=== PATIENT | male | born 1935 | race Two or more races ===

== ENCOUNTER 2023-02-02 19:32 | Emergency (ER) | payer OTHER ==
[~2023-02-02] VITALS: Ht 160 cm; Wt 55.3 kg
[2023-02-02 20:56] LABS: CALCIUM 9.1 mg/dL (8.5-10.1); CREATININE SERUM 1.47 mg/dL (0.70-1.30); GFR 45.53; POTASSIUM 4.27 mEq/L (3.5-5.1)
[2023-02-02 20:59] LABS: PH,URINE 5.5 (5.0-8.0); URINE APPEARANCE Clear; URINE BILIRRUBIN Negative (NEGATIVE); URINE BLOOD Negative; URINE COLOR Yellow; URINE GLUCOSE Negative (NEGATIVE); URINE LEUKOCYTE Trace; URINE NITRATE Negative; URINE PROTEIN 30 (NEGATIVE); URINE UROBILINOGEN 0.2 E.U./dl
[2023-02-02 21:02] LABS: URINE BACTERIA 15.1 uL (0.0-1933); URINE RBC 2.7 uL (0.0-20.8); URINE WBC 7.8 uL (0.0-23.2)
[2023-02-02 21:37] LABS: HEMATOCRIT 30.2 % (39.0-48.0); HEMOGLOBIN 9.6 g/dL (13-16.00); MEAN CELL VOLUME 78.2 fL (80.0-100.00); MEAN CORPUSCULAR HEMOGLOBIN 24.7 pg (27.00-32.0); MEAN CORPUSCULAR HGB CONC 31.6 g/dl (32.0-36.0); PLATELET COUNT 182 K/uL (150-450); RED BLOOD COUNT 3.87 M/uL (4.00-6.00); RED CELL DISTRIBUTION WIDTH 17.2 % (11.5-14.5)
== END 2023-02-02 22:37 | disposition home or self-care (01) ==
LOC: ER 19:32
PROVIDERS: Emergency Medicine; General Practice
DX: M25.572 Pain in left ankle and joints of left foot (principal); R55 Syncope and collapse; W18.39XA Other fall on same level, initial encounter; Y93.89 Activity, other specified; Y92.89 Other specified places as the place of occurrence of the external cause; Z20.822 Contact with and (suspected) exposure to COVID-19
CPT/HCPCS: 36415; 70450; 96372; 99284; J1100